=== PATIENT | male | born 1935 | race Hispanic/Latino ===

== ENCOUNTER 2018-06-07 14:57 | Inpatient (IN) | payer MEDICARE ==
[~2018-06-07] VITALS: Ht 165.1 cm; Wt 73.5 kg
[2018-06-07] MEDS ORDERED: ONDANSETRON HCL INJ 2 MG/ML VIAL IV STA (15:56)
[2018-06-07] MEDS ORDERED: MORPHINE SULFATE 2 MG/ML SYR IV STA (15:56)
[2018-06-07 16:40] LABS: BASOPHILS # (AUTO) 0.1 (0.0-0.1); BASOPHILS % 0.5 % (0.0-1.0); EOSINOPHILS # (AUTO) 0.2 (0.0-0.4); EOSINOPHILS % 2.2 % (0.0-6.0); HEMATOCRIT 36.6 % (38.2-49.6); HEMOGLOBIN 11.6 g/dL (14.0-18.0); LYMPHOCYTES # (AUTO) 2.8 (1.0-3.2); LYMPHOCYTES % 25.6 % (18.0-39.1); MEAN CORPUSCULAR HEMOGLOBIN 29.9 pg (28-32); MEAN CORPUSCULAR HGB CONC 31.7 g/dL (31-35); MEAN CORPUSCULAR VOLUME 94.3 fL (81-99); MONOCYTES # (AUTO) 0.6 (0.2-0.8); MONOCYTES % 5.6 % (4.4-11.3); NEUTROPHILS # (AUTO) 7.2 (2.1-6.9); NEUTROPHILS % 65.6 % (38.7-80.0); PLATELET COUNT 226 x10e3/uL (140-360); RED BLOOD COUNT 3.88 x10e6/uL (4.3-5.7); RED CELL DISTRIBUTION WIDTH 16.5 % (11.7-14.4)
[2018-06-07 16:52] LABS: ALBUMIN 2.8 g/dL (3.5-5.0); ALBUMIN/GLOBULIN RATIO 0.8 (0.8-2.0); ANION GAP 12.4 mmol/L (8-16); CALCIUM 8.9 mg/dL (8.4-10.2); CREATININE, SERUM 1.32 mg/dL (0.72-1.25); POTASSIUM 4.4 mmol/L (3.5-5.1)
[2018-06-07] MEDS ORDERED: SODIUM CHLORIDE 0.9% 500ML 500 ML IV ONE (17:15)
--- NOTE | 2018-06-07 19:15 | Diagnostic Imaging Report ---
EXAMINATION: CT of left wrist, with contrast. TECHNIQUE: Axial spiral CT images of the left wrist were performed from the midforearm to the mid fingers after the intravenous administration of 100 cc of Isovue 70. Coronal and sagittal reformatted images in bone and soft tissue windows were obtained. CLINICAL HISTORY: Swelling in the left wrist for 2 weeks COMPARISON: None. FINDINGS: Peripherally enhancing fluid collection in the left wrist area which has 3 components: * 2.5 x 5.0 x 3.1 cm component in the soft tissues medial to the ulna extending to the skin (series 602, image 25 and series 4, image 29), which partly surrounds the distal ulna. * 1.7 x 3.9 x 0.9 component which extends proximally between the ulna and radius (series 602, image 28 and series 4, image 51). * Partially visualized component measuring 1.8 x 1.0 cm not entirely included in the image, also inferiorly between the ulna and radius (series 602, image 29 and series 600, image 31 and series 4, image 65). These components communicate with each other. Extensive cortical erosion and irregularity involving the distal ulnar metaphysis and epiphysis, distal radial metaphysis and epiphyseal as well as multiple proximal carpal row bones and to a lesser degree second carpal row, with presence of cystic changes. Joint space narrowing is noted. Moderate subcutaneous soft tissue swelling from the mid forearm to the level of the metacarpophalangeal joints. IMPRESSION: 1. Large abscess in the left wrist area which partly surrounds the distal ulna and extends between the radius and ulna to the level of the mid forearm, and is not entirely imaged. 2. Findings in the distal ulnar and radial metaphysis and epiphysis, as well as multiple proximal carpal row bones and to a lesser degree second carpal row are highly suggestive of osteomyelitis. Signed by: Dr. Devante Waterman M.D. on 06/07/2018 7:11 PM
[2018-06-07] MEDS: PIPER-TAZ 3.375 GM 50 ML IV SCH (19:58)
[2018-06-07] MEDS: VANCOMYCIN 1GM/NS 250 ML 250 ML IV SCH (20:35)
[2018-06-07] MEDS ORDERED: MORPHINE SULFATE INJ 4 MG/ML INJ IV PRN (22:00)
[2018-06-07] MEDS ORDERED: MORPHINE SULFATE 2 MG/ML SYR IV PRN (22:00)
--- OUTSIDE RECORDS SUMMARY | 2018-06-07 22:24 | XMS REPORT ---
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 Allergies, Adverse Reactions, Alerts This patient has no known allergies or adverse reactions. Medications This patient has no known medications. Results Test Description Test Time Test Comments Text Results Atomic Results Result Comments CT UPPER EXTREMITIES W 2018-06-07 18:53:00 [place] [address] Patient Name: RAUL DAHL MR #: [id number] : 1935 Age/Sex: 82/M Req #: [id number] Adm Physician: Ordered by: JUAN JOSE INTERIANO MD Report #: [id number] Location: ER Room/Bed: Procedure: [id number] CT/CT UPPER EXTREMITIES W Exam Date: Exam Time: REPORT STATUS: Signed EXAMINATION: CT of left wrist, with contrast. TECHNIQUE: Axial spiral CT images of the left wrist were performed from the midforearm to the mid fingers after the intravenous administration of 100 cc of Isovue 70. Coronal and sagittal reformatted images in bone and soft tissue windows were obtained. CLINICAL HISTORY: Swelling in the left wrist for 2 weeks COMPARISON: None. FINDINGS: Peripherally enhancing fluid collection in t he left wrist area which has 3 components: * 2.5 x 5.0 x 3.1 cm component in the soft tissues medial to the ulna extending to the skin (series 602, image 25 and series 4, image 29), which partly surrounds the distal ulna. * 1.7 x 3.9 x 0.9 component which extends proximally between the ulna and radius (series 602, image 28 and series 4, image 51). * Partially visualized component measuring 1.8 x 1.0 cm not entirely included in the image, also inferiorly between the ulna and radius (series 602, image 29 and series 600, image 31 and series 4, image 65). These components communicate with each other. Extensive cortical erosion and irregularity involving the distal ulnar metaphysis and epiphysis, distal radial metaphysis and epiphyseal as well as multiple proximal carpal row bones and to a lesser degree second carpal row, with presence of cystic changes. Joint space narrowing is noted. Moderate subcutaneous soft tissue swelling from the mid forearm to the level of the metacarpophalangeal joints. IMPRESSION: 1. Large abscess in the left wrist area which partly surrounds the distal ulna and extends between the radius and ulna to the level of the mid forearm, and is not entirely imaged. 2. Findings in the distal ulnar and radial metaphysis and epiphysis, as well as multiple proximal carpal row bones and to a lesser degree second carpal row are highly suggestive of osteomyelitis. Signed by: Dr. Mauro Lord M.D. on 06/07/2018 7:11 PM Dictated By: MAURO LORD MD 10 Transcribed By: VICTOR MANUEL on 06/07/181910 COPY TO: JUAN JOSE INTERIANO MD
[2018-06-07] MEDS ORDERED: SODIUM CHLORIDE 0.9% 50ML 50 ML ONE (22:26)
[2018-06-07] MEDS ORDERED: IOPAMIDOL 370 MG/ML 200 ML INFUS..BTL INJ ONE (22:26)
[2018-06-07 23:01] VITALS: BP 154/73
[2018-06-08] VITALS: BP 154/73
[2018-06-08] MEDS ORDERED: SODIUM CHLORIDE 0.9% 250ML 250 ML ONE (02:24)
[2018-06-08] MEDS: PIPER-TAZ 3.375 GM 50 ML IV SCH ×2 (02:44→11:05)
[2018-06-08 04:00] VITALS: BP 141/67
[2018-06-08 05:14] LABS: BASOPHILS # (AUTO) 0.1 (0.0-0.1); BASOPHILS % 0.5 % (0.0-1.0); EOSINOPHILS # (AUTO) 0.2 (0.0-0.4); EOSINOPHILS % 2.2 % (0.0-6.0); HEMATOCRIT 30.6 % (38.2-49.6); HEMOGLOBIN 9.8 g/dL (14.0-18.0); LYMPHOCYTES # (AUTO) 2.5 (1.0-3.2); LYMPHOCYTES % 24.9 % (18.0-39.1); MEAN CORPUSCULAR HEMOGLOBIN 29.9 pg (28-32); MEAN CORPUSCULAR VOLUME 93.3 fL (81-99); MONOCYTES # (AUTO) 0.6 (0.2-0.8); NEUTROPHILS # (AUTO) 6.6 (2.1-6.9); NEUTROPHILS % 66.1 % (38.7-80.0); PLATELET COUNT 190 x10e3/uL (140-360); RED BLOOD COUNT 3.28 x10e6/uL (4.3-5.7); RED CELL DISTRIBUTION WIDTH 16.5 % (11.7-14.4)
[2018-06-08 05:34] LABS: ALBUMIN 2.2 g/dL (3.5-5.0); ALBUMIN/GLOBULIN RATIO 0.7 (0.8-2.0); CALCIUM 8.5 mg/dL (8.4-10.2); CREATININE, SERUM 1.21 mg/dL (0.72-1.25)
[2018-06-08] MEDS: VANCOMYCIN 1GM/NS 250 ML 250 ML IV SCH (06:22)
[2018-06-08 07:37] VITALS: BP 137/65
[2018-06-08] MEDS ORDERED: DEXTROSE 50% SYRINGE 50 ML IV PRN ×2 (10:30)
[2018-06-08 11:13] LABS: % IRON SATURATION 20 % (15-50); IRON 31 ug/dL (65-175); TOTAL IRON BINDING CAPACITY 158 ug/dL (261-478); TRANSFERRIN 113 mg/dL (174-364)
[2018-06-08 11:23] VITALS: BP 152/68
[2018-06-08] MEDS ORDERED: INSULIN LISPRO 100 UNIT/1 ML 3ML VIAL SQ SCH (11:30)
[2018-06-08] MEDS: INSULIN LISPRO 100 UNIT/1 ML 3ML VIAL SQ SCH ×2 (11:30→16:30)
--- NOTE | 2018-06-08 11:53 | History and Physical ---
CLINICAL HISTORY: This is an 82-year-old man admitted via Dr. Andrew Sheldon's office and the emergency room because of osteomyelitis and left wrist abscess. This patient was in [place] when he developed a small wound in the left wrist. This gradually worsened. He went to a local doctor and was given an injection as well as tablets, failing to improve and gradually worsened. He finally came back to the [place] area the day prior to admission and went to see Dr. Andrew Sheldon, who directed him to come to the emergency room. PAST MEDICAL HISTORY: Remarkable for diabetes and hyperlipidemia. In 2000, he had myocardial infarction treated at [facility] with angioplasty and stenting. Since then, he has been followed at the [facility] and Dr. Sheldon's office. Denies any chest pain. Past medical history is otherwise noncontributory. PERSONAL AND SOCIAL HISTORY: Please refer to existing records. REVIEW OF SYSTEMS: Negative. PHYSICAL EXAMINATION GENERAL: He is alert and coherent. VITAL SIGNS: Stable. CARDIOVASCULAR: Jugular veins are not distended. S1 and S2 are regular. There is no appreciable murmur. LUNGS: Clear. ABDOMEN: Soft. Bowel sounds are present. EXTREMITIES: No cyanosis, clubbing or edema. His left wrist is markedly swollen, and there appears to be a pustule. LABORATORY STUDIES: White count 10,900; hemoglobin 11.6; platelet count 226,000. BUN is 18, creatinine 1.3, albumin 2.8. The CT scan of the wrist showed large abscess and suggestion of osteomyelitis involving multiple proximal carpal bones. EKG is not available. IMPRESSION 1. Left wrist abscess and osteomyelitis of the carpal bones of 3 weeks' duration requiring surgical drainage. 2. Diabetes. 3. Hyperlipidemia. 4. Previous myocardial infarction in 2000 treated with stent. 5. Ischemic cardiomyopathy, ejection fraction 45% by history. 6. Mild azotemia, possibly due to volume depletion. 7. Hypoalbuminemia. 8. Anemia. Rule out iron deficiency and gastrointestinal bleeding. RECOMMENDATIONS 1. This patient's risk is increased from a cardiac standpoint for general anesthesia and surgery because of previous myocardial infarction, age, and because of cardiomyopathy. 2. Because of cardiomyopathy, nevertheless, the risks appear to be acceptable for the needed abscess drainage. Will consult surgery and infectious disease. He may require plastic surgery. 3. He will continue on IV antibiotics. Will work up other metabolic abnormalities. Consider echocardiogram to assess left ventricular function since he has not been evaluated from a cardiac standpoint for approximately 17 years. Job#: [id number] cc:MD PEARL BROWN MD
--- NOTE | 2018-06-08 15:11 | Consultation ---
DATE OF CONSULTATION: June 08, 2018 INFECTIOUS DISEASE CONSULTATION ATTENDING PHYSICIAN: Dr. Daniel Corcoran. REASON FOR CONSULTATION: Abscess. Thank you, Dr. Corcoran, for asking me to see this patient. HISTORY: The patient is an 82-year-old man referred for cellulitis. He was admitted through the emergency department with cellulitis and abscess of the left wrist. He presented to the emergency department on June 07, 2018, with progressive left upper extremity swelling and pain which began 3 weeks earlier. He denies fever and chills. Also he denies trauma and insect or spider bites. He usually eats home-cooked food but recalls 2 episodes of liquid stool several weeks ago. He does not recall recent illness or procedure. In the emergency department, he was noted to have temperature of 97.6 degrees Fahrenheit, pulse 86, respiratory rate 18, blood pressure 154/78 and oxygen saturation 99% on room air. CT scan of the left upper extremity showed large abscess in the left wrist area which partially surrounds the distal ulna and extends between the radius and ulna to the level of the mid forearm; features of osteomyelitis in distal ulna and radial metaphysis and epiphysis as well as multiple proximal carpal bones. PAST MEDICAL HISTORY: Diabetes mellitus type 2, hypertension, and coronary artery disease status post stenting. PAST SURGICAL HISTORY: Cataract surgery and appendectomy. ALLERGIES: NO KNOWN DRUG ALLERGIES. MEDICATIONS: See MAR. The current antibiotics are Zosyn 3.375 g IV piggyback q. 8h and vancomycin 1 g IV piggyback q.12 h. IMMUNIZATION: He has not received influenza vaccine this season. Also the patient does not recall pneumococcal vaccination. FAMILY HISTORY: Noncontributory. SOCIAL HISTORY: He quit smoking cigarettes many years ago. He drinks alcohol rarely. REVIEW OF SYSTEMS: As per history of present illness. PHYSICAL EXAMINATION GENERAL: No acute distress. VITAL SIGNS: T-max 98.7, pulse 63, respiratory rate 18, blood pressure 137/65 and weight 162 pounds. HEENT: Normocephalic. There is no icterus or injection of conjunctivae. There is no ear or nasal discharge. Moist oral mucosa. No pharyngeal erythema or exudate. NECK: Supple. No meningismus. LUNGS: Good air entry bilaterally. HEART: Normal S1 and S2. Regular. ABDOMEN: Soft and nontender. EXTREMITIES: There is large fluctuance in the distal left forearm and wrist, as well as edema of the upper extremities extending from the left wrist to the left elbow. There is no edema, clubbing or cyanosis of the rest of the extremities. There is tenderness to palpation of the distal left forearm and wrist. Dorsalis pedis and posterior tibial pulses are palpable in both feet. SKIN: As per extremities. [employer]: Awake, alert and oriented to person, place and time. There is decreased sensation to monofilament test of the feet. Nonfocal. LABORATORY AND DIAGNOSTICS: WBC 9940, hemoglobin 9.8, platelet 190,000, neutrophil 66.1, lymph 24.9, mono 6, eosinophil 2.2, basophil 0.5. BUN 18, creatinine 1.2. Blood culture is pending. Blood glucose 108. IMPRESSION 1. Large abscess of the left wrist probably due to osteomyelitis of the distal ulna/radius. 2. Diabetes mellitus type 2 with peripheral neuropathy, controlled. PLAN 1. Consult surgical service for incision and drainage and bone curettage. 2. Check vancomycin level and ESR. Also send OR specimen for culture and sensitivity. 3. The patient should be continued on current antibiotic. Influenza and pneumococcal vaccinations should be given to the patient prior to discharge. Job#: [id number] EV MTDJillian
[2018-06-08 16:15] VITALS: BP 138/63
[2018-06-10] MEDS ORDERED: ASPIRIN 81 MG ENTERIC COATED PO SCH (09:00)
[2018-06-10] MEDS ORDERED: PRAVASTATIN 20 MG TAB PO SCH (21:00)
--- NOTE | 2018-06-11 16:05 | Discharge Summary ---
CLINICAL HISTORY: This is an 82-year-old man with a left wrist abscess with osteomyelitis admitted via the emergency room because of failure with outpatient therapy for 1 month (in [place]). Please refer to my previous dictation concerning details of current illness, past medical history, personal/social history, family history, review of systems, physical examination and initial laboratory studies. HOSPITAL COURSE: The patient was admitted via the emergency room because for intravenous antibiotics. Surgery consultation obtained with Dr. Vora (plastic surgery) and Dr. Dhaval Whitten (general surgery). Neither doctor could operate on this patient with Dr. Vora scheduled out of town. It was felt that this case will have to be transferred to the [facility] where appropriate hand surgeon can operate on this patient. Arrangements were made with [facility] and after discussion with doctors there, the patient was transferred to [facility] for surgical intervention. DISCHARGE DIAGNOSIS: Same as on admission. MARK GAGE MD Job#: [id number] GH cc:MINDY QUINONES MD
--- NOTE | 2018-06-13 11:08 | Cardiology Report ---
DATE OF STUDY: June 08, 2018 ECHOCARDIOGRAM M-MODE: Dilated left ventricle. Diminished left ventricular contractility. Anterior septal akinesis. Normal mitral and aortic valves. No pericardial effusion. SECTOR SCAN: Dilated left ventricle. Diminished left ventricular contractility. Ejection fraction of approximately 35%. Anterior apex and distal septum appear to be akinetic consistent with previous myocardial infarction. The left atrium appears to be enlarged. Mitral and aortic valves are grossly normal. Mitral leaflet excursion is diminished. Tricuspid valve appears to be normal. There is no pericardial effusion. CARDIAC DOPPLER STUDY WITH COLOR: Mitral valve area calculated at 1.9 cm2. There is trace mitral regurgitation. CONCLUSIONS 1. Anterior apical and distal septal akinesis consistent with previous myocardial infarction. 2. Left ventricular ejection fraction is approximately 35%. 3. Trace mitral regurgitation with dilated left atrium with decreased mitral excursion with mitral valve area calculated at 1.9 cm2. 4. No evidence of aortic stenosis. 5. Mild left ventricular hypertrophy. Job#: [id number] cc:PATEL REYES MD
== END 2018-06-08 21:08 | disposition short-term general hospital (02) | DRG 638 ==
LOC: ER 14:57 → ERHOLD 21:46 → MED/SURG3 22:25
PROVIDERS: ADMIT Internal Medicine Cardiovascular Disease; ATTEND Internal Medicine Cardiovascular Disease
DX: E11.69 Type 2 diabetes mellitus with other specified complication (principal); L02.414 Cutaneous abscess of left upper limb; M86.8X8 Other osteomyelitis, other site; L03.114 Cellulitis of left upper limb; E11.42 Type 2 diabetes mellitus with diabetic polyneuropathy; I10 Essential (primary) hypertension; I25.10 Atherosclerotic heart disease of native coronary artery without angina pectoris; Z95.5 Presence of coronary angioplasty implant and graft; E78.5 Hyperlipidemia, unspecified; D64.9 Anemia, unspecified; I25.5 Ischemic cardiomyopathy; I25.2 Old myocardial infarction; E88.09 Other disorders of plasma-protein metabolism, not elsewhere classified
CPT/HCPCS: 36415; 73201; 80053; 80202; 82948; 83540; 83605; 84466; 85025; 85651; 86140; 87040; 93005; 93306; 99284; J2270; J2405; J2543; J3370; J7040; J7050; Q9967